=== PATIENT | female | born 1985 | race African-American/Black ===

== ENCOUNTER 2021-12-20 15:49 | Inpatient (IN) | payer OTHER ==
[2021-12-20 18:30] VITALS: BMI 29.9
[2021-12-20] MEDS ORDERED: MAGNESIUM CITRATE 300 ML BOTTLE PO PRN (19:15)
[2021-12-20] MEDS ORDERED: ONDANSETRON *ODT* 4 MG TABLET SL PRN (19:15)
[2021-12-20] MEDS ORDERED: METHOCARBAMOL 500 MG TABLET PO PRN (19:15)
[2021-12-20] MEDS ORDERED: BENZOCAINE/MENTHOL (CHLORASEPTIC ) LOZENGE MM PRN (19:15)
[2021-12-20] MEDS ORDERED: NICOTINE 10 MG CARTRIDGE (INHALER) IH PRN (19:15)
[2021-12-20] MEDS ORDERED: MAGNESIUM HYDROX 2400MG/30ML ORAL SUSPENSION 30 ML CUP PO PRN (19:15)
[2021-12-20] MEDS ORDERED: MAG HYDROX/AL HYDROX/SIMETH 30 ML UNIT-DOSE CUP PO PRN (19:15)
[2021-12-20] MEDS ORDERED: DICYCLOMINE HCL 10 MG CAPSULE PO PRN (19:15)
[2021-12-20] MEDS ORDERED: IBUPROFEN 600 MG TABLET (FP) PO PRN (19:15)
[2021-12-20] MEDS ORDERED: BISMUTH SUBSALICYLATE 524 MG/30 ML PO PRN (19:15)
[2021-12-20] MEDS ORDERED: diazePAM 5 MG TABLET PO PRN (19:15)
[2021-12-20] MEDS ORDERED: IBUPROFEN 400 MG TABLET (FP) PO PRN (19:15)
[2021-12-20] MEDS ORDERED: ACETAMINOPHEN 325 MG TABLET (FP) PO PRN ×2 (19:15)
[2021-12-20] MEDS ORDERED: LOPERAMIDE HCL 2 MG CAPSULE PO PRN (19:15)
[2021-12-20] MEDS: MELATONIN 5 MG TABLETS PO SCH (22:48)
[2021-12-20] MEDS: diazePAM 5 MG TABLET PO SCH (22:48)
[2021-12-20] MEDS: THIAMINE HCL 100 MG TABLET (FP) PO SCH (22:49)
[2021-12-20] MEDS: hydrOXYzine PAMOATE 25 MG CAPSULE (FP) PO SCH (22:49)
[2021-12-21] MEDS: diazePAM 5 MG TABLET PO SCH ×4 (05:41→22:39)
[2021-12-21] MEDS: hydrOXYzine PAMOATE 25 MG CAPSULE (FP) PO SCH ×5 (05:42→22:39)
[2021-12-21 10:00] LABS: HEMATOCRIT 34.1 % (32.4-45.2); MCH 27.5 pg (25.7-33.7); MCHC 32.2 g/dl (32.0-36.0); MEAN CELL VOLUME 85.6 fl (80-96); MEAN PLT VOLUME 9.3 fl (7.5-11.1); PLATELET COUNT 243 10^3/uL (134-434); RBC 3.98 M/mm3 (3.60-5.2); RDW 17.1 % (11.6-15.6); WHITE BLOOD COUNT 4.5 K/mm3 (4.0-10.0)
[2021-12-21 10:02] LABS: ALBUMIN 3.2 g/dl (3.4-5.0)
[2021-12-21 10:03] LABS: BLOOD UREA NITROGEN 5.4 mg/dL (7-18)
[2021-12-21 10:05] LABS: CREATININE 0.8 mg/dL (0.55-1.3)
[2021-12-21 10:07] LABS: BILIRUBIN,TOTAL 1.2 mg/dL (0.2-1); TOT PROT 7.5 g/dl (6.4-8.2)
[2021-12-21] MEDS: PRENATAL VITAMINS W/ FOLIC ACID TABLET (FP) PO SCH (10:12)
[2021-12-21] MEDS: THIAMINE HCL 100 MG TABLET (FP) PO SCH (22:39)
[2021-12-21] MEDS: MELATONIN 5 MG TABLETS PO SCH (22:39)
[2021-12-22] MEDS: diazePAM 5 MG TABLET PO SCH ×3 (06:04→22:15)
[2021-12-22] MEDS: hydrOXYzine PAMOATE 25 MG CAPSULE (FP) PO SCH ×5 (06:04→22:15)
[2021-12-22] MEDS: PRENATAL VITAMINS W/ FOLIC ACID TABLET (FP) PO SCH (11:53)
[2021-12-22] MEDS: MELATONIN 5 MG TABLETS PO SCH (22:15)
[2021-12-22] MEDS: THIAMINE HCL 100 MG TABLET (FP) PO SCH (22:15)
[2021-12-23] MEDS: hydrOXYzine PAMOATE 25 MG CAPSULE (FP) PO SCH ×6 (05:55→21:37)
[2021-12-23] MEDS: diazePAM 5 MG TABLET PO SCH ×2 (05:55→17:51)
[2021-12-23] MEDS: PRENATAL VITAMINS W/ FOLIC ACID TABLET (FP) PO SCH (10:58)
[2021-12-23] MEDS: THIAMINE HCL 100 MG TABLET (FP) PO SCH (21:37)
[2021-12-23] MEDS: MELATONIN 5 MG TABLETS PO SCH (21:37)
[2021-12-24] MEDS: hydrOXYzine PAMOATE 25 MG CAPSULE (FP) PO SCH ×2 (05:50→10:37)
[2021-12-24] MEDS ORDERED: diazePAM 5 MG TABLET PO ONE (06:00)
[2021-12-24 09:53] VITALS: BP 106/62; PULSE 102; RESP 19; TEMP 97.5
[2021-12-24] MEDS: PRENATAL VITAMINS W/ FOLIC ACID TABLET (FP) PO SCH (10:37)
== END 2021-12-24 12:10 | disposition other institution (70) | DRG 775 ==
LOC: YASAS 15:49 → Y3N 20:01
PROVIDERS: ADMIT Allergy & Immunology; ATTEND Surgery
PROC: HZ2ZZZZ Detoxification Services for Substance Abuse Treatment (ICD-10-PCS; principal; 2021-12-20)
DX: F10.230 Alcohol dependence with withdrawal, uncomplicated (principal); F32.A Depression, unspecified; Z91.14 Patient's other noncompliance with medication regimen
CPT/HCPCS: 36415; 80053; 81025; 85027; 86780; C9803-CS; U0003; U0005

== ENCOUNTER 2021-12-24 13:22 | Inpatient (IN) | payer OTHER ==
[2021-12-24] MEDS ORDERED: LOPERAMIDE HCL 2 MG CAPSULE PO PRN (19:01)
[2021-12-24] MEDS ORDERED: guaiFENesin 200 MG/10 ML 10 ML UNIT-DOSE CUPS PO PRN (19:01)
[2021-12-24] MEDS ORDERED: MAGNESIUM CITRATE 300 ML BOTTLE PO PRN (19:01)
[2021-12-24] MEDS ORDERED: P-EPHED 60MG/TRIPROLIDI 2.5MG TABLET PO PRN (19:01)
[2021-12-24] MEDS ORDERED: MAGNESIUM HYDROX 2400MG/30ML ORAL SUSPENSION 30 ML CUP PO PRN (19:01)
[2021-12-24] MEDS ORDERED: MAG HYDROX/AL HYDROX/SIMETH 30 ML UNIT-DOSE CUP PO PRN (19:01)
[2021-12-24] MEDS ORDERED: ACETAMINOPHEN 325 MG TABLET (FP) PO PRN (19:01)
[2021-12-24] MEDS ORDERED: BENZOCAINE/MENTHOL (CHLORASEPTIC ) LOZENGE MM PRN (19:01)
[2021-12-24] MEDS ORDERED: IBUPROFEN 400 MG TABLET (FP) PO PRN (19:01)
[2021-12-24] MEDS: MELATONIN 5 MG TABLETS PO PRN (21:16)
[2021-12-24] MEDS: THIAMINE HCL 100 MG TABLET (FP) PO SCH (21:16)
[2021-12-25] MEDS: PRENATAL VITAMINS W/ FOLIC ACID TABLET (FP) PO SCH (11:08)
[2021-12-25] MEDS: THIAMINE HCL 100 MG TABLET (FP) PO SCH (22:15)
[2021-12-25] MEDS: MELATONIN 5 MG TABLETS PO PRN (22:15)
[2021-12-26] MEDS: PRENATAL VITAMINS W/ FOLIC ACID TABLET (FP) PO SCH (10:37)
[2021-12-26] MEDS ORDERED: TUBERCULIN PPD 5 TU/0.1ML VIAL ID ONE (14:33)
[2021-12-26] MEDS: THIAMINE HCL 100 MG TABLET (FP) PO SCH (22:10)
[2021-12-26] MEDS: MELATONIN 5 MG TABLETS PO PRN (22:11)
[2021-12-27] MEDS: PRENATAL VITAMINS W/ FOLIC ACID TABLET (FP) PO SCH (10:53)
[2021-12-27] MEDS: THIAMINE HCL 100 MG TABLET (FP) PO SCH (21:53)
[2021-12-27] MEDS: MELATONIN 5 MG TABLETS PO PRN (21:53)
[2021-12-28] MEDS: PRENATAL VITAMINS W/ FOLIC ACID TABLET (FP) PO SCH (10:48)
[2021-12-28] MEDS: DOCUSATE SODIUM 100 MG CAPSULE (FP) PO SCH ×2 (14:56→21:47)
[2021-12-28] MEDS: MELATONIN 5 MG TABLETS PO PRN (21:46)
[2021-12-28] MEDS: THIAMINE HCL 100 MG TABLET (FP) PO SCH (21:46)
[2021-12-29] MEDS: DOCUSATE SODIUM 100 MG CAPSULE (FP) PO SCH ×3 (06:19→21:13)
[2021-12-29] MEDS: PRENATAL VITAMINS W/ FOLIC ACID TABLET (FP) PO SCH (09:51)
[2021-12-29] MEDS: THIAMINE HCL 100 MG TABLET (FP) PO SCH (21:13)
[2021-12-29] MEDS: MELATONIN 5 MG TABLETS PO PRN (21:13)
[2021-12-30] MEDS: DOCUSATE SODIUM 100 MG CAPSULE (FP) PO SCH ×3 (07:44→21:06)
[2021-12-30] MEDS: PRENATAL VITAMINS W/ FOLIC ACID TABLET (FP) PO SCH (10:27)
[2021-12-30] MEDS: THIAMINE HCL 100 MG TABLET (FP) PO SCH (21:06)
[2021-12-30] MEDS: MELATONIN 5 MG TABLETS PO PRN (21:06)
[2021-12-31] MEDS: DOCUSATE SODIUM 100 MG CAPSULE (FP) PO SCH ×3 (06:43→21:57)
[2021-12-31] MEDS: PRENATAL VITAMINS W/ FOLIC ACID TABLET (FP) PO SCH (09:34)
[2021-12-31] MEDS: NALTREXONE HCL 50 MG TABLET PO SCH (09:36)
[2021-12-31] MEDS: THIAMINE HCL 100 MG TABLET (FP) PO SCH (21:56)
[2021-12-31] MEDS: MELATONIN 5 MG TABLETS PO PRN (21:56)
[2022-01-01] MEDS: DOCUSATE SODIUM 100 MG CAPSULE (FP) PO SCH ×3 (06:30→21:54)
[2022-01-01] MEDS: NALTREXONE HCL 50 MG TABLET PO SCH (09:38)
[2022-01-01] MEDS: PRENATAL VITAMINS W/ FOLIC ACID TABLET (FP) PO SCH (09:38)
[2022-01-01] MEDS: MELATONIN 5 MG TABLETS PO SCH (21:54)
[2022-01-01] MEDS: THIAMINE HCL 100 MG TABLET (FP) PO SCH (21:54)
[2022-01-02] MEDS: DOCUSATE SODIUM 100 MG CAPSULE (FP) PO SCH ×3 (06:10→21:05)
[2022-01-02] MEDS: NALTREXONE HCL 50 MG TABLET PO SCH (10:53)
[2022-01-02] MEDS: PRENATAL VITAMINS W/ FOLIC ACID TABLET (FP) PO SCH (10:53)
[2022-01-02] MEDS: MELATONIN 5 MG TABLETS PO SCH (21:05)
[2022-01-02] MEDS: THIAMINE HCL 100 MG TABLET (FP) PO SCH (21:05)
[2022-01-03] MEDS: DOCUSATE SODIUM 100 MG CAPSULE (FP) PO SCH ×3 (06:26→21:06)
[2022-01-03] MEDS: NALTREXONE HCL 50 MG TABLET PO SCH (10:51)
[2022-01-03] MEDS: PRENATAL VITAMINS W/ FOLIC ACID TABLET (FP) PO SCH (10:51)
[2022-01-03] MEDS: MELATONIN 5 MG TABLETS PO SCH (21:06)
[2022-01-03] MEDS: THIAMINE HCL 100 MG TABLET (FP) PO SCH (21:06)
[2022-01-04] MEDS: DOCUSATE SODIUM 100 MG CAPSULE (FP) PO SCH ×3 (06:40→21:09)
[2022-01-04] MEDS: PRENATAL VITAMINS W/ FOLIC ACID TABLET (FP) PO SCH (10:24)
[2022-01-04] MEDS: NALTREXONE HCL 50 MG TABLET PO SCH (10:24)
[2022-01-04] MEDS: MELATONIN 5 MG TABLETS PO SCH (21:09)
[2022-01-04] MEDS: THIAMINE HCL 100 MG TABLET (FP) PO SCH (21:09)
[2022-01-05] MEDS: DOCUSATE SODIUM 100 MG CAPSULE (FP) PO SCH ×3 (06:41→21:06)
[2022-01-05] MEDS: NALTREXONE HCL 50 MG TABLET PO SCH (10:45)
[2022-01-05] MEDS: PRENATAL VITAMINS W/ FOLIC ACID TABLET (FP) PO SCH (10:45)
[2022-01-05] MEDS: THIAMINE HCL 100 MG TABLET (FP) PO SCH (21:06)
[2022-01-05] MEDS: MELATONIN 5 MG TABLETS PO SCH (21:06)
[2022-01-06] MEDS: DOCUSATE SODIUM 100 MG CAPSULE (FP) PO SCH (07:01)
[2022-01-06 08:18] VITALS: BP 110/84; PULSE 77; RESP 16; TEMP 97.3
[2022-01-06] MEDS: NALTREXONE HCL 50 MG TABLET PO SCH (10:55)
[2022-01-06] MEDS: PRENATAL VITAMINS W/ FOLIC ACID TABLET (FP) PO SCH (10:55)
== END 2022-01-06 11:10 | disposition home or self-care (01) | DRG 772 ==
LOC: YASAS 13:22 → Y5N 13:23
PROVIDERS: ADMIT Allergy & Immunology; ATTEND Psychiatry & Neurology Pain Medicine
PROC: HZ42ZZZ Group Counseling for Substance Abuse Treatment, Cognitive-Behavioral (ICD-10-PCS; principal; 2021-12-24)
DX: F10.20 Alcohol dependence, uncomplicated (principal); F13.20 Sedative, hypnotic or anxiolytic dependence, uncomplicated; F31.9 Bipolar disorder, unspecified; F39 Unspecified mood [affective] disorder
CPT/HCPCS: 82962